=== PATIENT | male | born 1975 | race Caucasian/White ===

== ENCOUNTER 2018-03-11 02:29 | Emergency (ER) | payer OTHER, SELFPAY ==
[~2018-03-11] VITALS: Ht 185.4 cm; Wt 112.6 kg
[2018-03-11] MEDS ORDERED: SODIUM CHLORIDE FLUSH 10ML SYR IVF ONE (03:00)
[2018-03-11] MEDS ORDERED: SODIUM CHLORIDE 0.9% 1,000ML IVBOLUS ONE (03:00)
[2018-03-11] MEDS ORDERED: ONDANSETRON ODT 4 MG PO ONE (03:00)
[2018-03-11] MEDS ORDERED: KETOROLAC 30 MG/1 ML IVPush ONE (03:00)
[2018-03-11] MEDS ORDERED: ONDANSETRON ODT 4 MG ONE (03:16)
[2018-03-11] MEDS ORDERED: KETOROLAC 30 MG/1 ML ONE (03:16)
[2018-03-11 03:20] LABS: MEAN CORPUSCULAR HEMOGLOBIN 31.6 pg (27.5-34.5); MEAN CORPUSCULAR HGB CONC 34.4 g/dL (33.2-36.2); MEAN CORPUSCULAR VOLUME 91.8 fL (81-97); MEAN PLATELET VOLUME 10.3 fL (7.4-10.4); PLATELET COUNT 159 x10^3/uL (130-400); RED BLOOD COUNT 5.26 x10^6/uL (4.38-5.82); RED CELL DISTRIBUTION WIDTH 13.6 % (9.4-14.8)
[2018-03-11 03:32] LABS: ALANINE AMINOTRANSFERASE 39 U/L (12-78); ANION GAP 8 mmol/L (5-15); CALCIUM 8.8 mg/dL (8.5-10.1); CHLORIDE 104 mmol/L (98-107)
[2018-03-11 03:33] LABS: CULTURE INDICATED? YES; MICROSCOPIC INDICATED
[2018-03-11 03:35] LABS: ALKALINE PHOSPHATASE 68 U/L (45-117); BILIRUBIN,TOTAL 1.5 mg/dL (0.2-1.0); CREATININE 1.18 mg/dL (0.7-1.3); TOTAL PROTEIN 7.7 g/dL (6.4-8.2)
[2018-03-11 03:44] LABS: RAPID INFLUENZA A Negative (Negative); RAPID INFLUENZA B Negative (Negative)
[2018-03-11 04:05] LABS: BASOPHILS # (AUTO) 0.14 x10^3/uL (0-0.1); BASOPHILS % (AUTO) 1 % (0-1); EOSINOPHILS # (AUTO) 0.02 x10^3/uL (0-0.4); EOSINOPHILS % (AUTO) 0 % (1-7); LYMPHOCYTES # (AUTO) 2.14 x10^3/uL (1-3.4); LYMPHOCYTES % (AUTO) 13 % (22-44); MD SCAN; MONOCYTES # (AUTO) 1.62 x10^3/uL (0.2-0.8); MONOCYTES % (AUTO) 9 % (2-9); NEUTROPHILS # (AUTO) 13.23 x10^3/uL (1.8-6.8); NEUTROPHILS % (AUTO) 77 % (42-75)
[2018-03-11 04:16] VITALS: BP 148/76
== END 2018-03-11 05:00 | disposition home or self-care (01) ==
LOC: ED 04:55
DX: J15.9 Unspecified bacterial pneumonia (principal); F17.200 Nicotine dependence, unspecified, uncomplicated
CPT/HCPCS: 36415; 71046; 80053; 81001; 83605; 84145; 85025; 87040; 87086; 87400; 96374; 99285; J1885; J7030; Q0162